=== PATIENT | female | born 1970 | race Caucasian/White ===

== ENCOUNTER → 2020-12-25 11:08 | Outpatient (BNVA) | payer OTHER, SELFPAY | PROVIDERS: Visit Provider Physician Assistant Medical | DX: S83.91XD Sprain of unspecified site of right knee, subsequent encounter (principal); S46.911D Strain of unspecified muscle, fascia and tendon at shoulder and upper arm level, right arm, subsequent encounter; Y04.2XXD Assault by strike against or bumped into by another person, subsequent encounter | CPT/HCPCS: 99203 ==

== ENCOUNTER → 2021-01-09 15:20 | Outpatient (BNVA) | payer OTHER, SELFPAY | PROVIDERS: Visit Provider Physician Assistant | DX: S80.01XD Contusion of right knee, subsequent encounter (principal); S46.911D Strain of unspecified muscle, fascia and tendon at shoulder and upper arm level, right arm, subsequent encounter; Y04.2XXD Assault by strike against or bumped into by another person, subsequent encounter | CPT/HCPCS: 99213 ==

== ENCOUNTER → 2021-01-24 15:26 | Outpatient (BNVA) | payer OTHER, SELFPAY | PROVIDERS: Visit Provider Physician Assistant | DX: M25.561 Pain in right knee (principal); S46.911D Strain of unspecified muscle, fascia and tendon at shoulder and upper arm level, right arm, subsequent encounter; X58.XXXD Exposure to other specified factors, subsequent encounter | CPT/HCPCS: 99213 ==

== ENCOUNTER → 2021-02-14 11:43 | Outpatient (BNVA) | payer OTHER, SELFPAY | PROVIDERS: Visit Provider Physician Assistant | DX: M25.561 Pain in right knee (principal); S46.911D Strain of unspecified muscle, fascia and tendon at shoulder and upper arm level, right arm, subsequent encounter; Y04.2XXD Assault by strike against or bumped into by another person, subsequent encounter | CPT/HCPCS: 99213 ==

== ENCOUNTER 2021-03-04 15:33 | Outpatient (REF) | payer OTHER, SELFPAY ==
--- NOTE | ~2021-03-04 | MR_ITS ---
EXAMINATION: MR KNEE WITHOUT CONTRAST, RIGHT CLINICAL INFORMATION: Anterior right knee pain COMPARISON: None TECHNIQUE: MRI of the knee without contrast was performed using routine sequences on a high-field scanner. FINDINGS: MENISCI: Medial Meniscus: Intact Lateral Meniscus: Intact LIGAMENTS: Cruciate: Intact Collateral: Intact EXTENSOR MECHANISM: Intact ARTICULAR CARTILAGE/BONE: Patellofemoral Compartment: Minimal cartilage surface irregularity of the lateral patellar facet. Medial Compartment: Minimal surface irregularity of the articular cartilage of the weightbearing femoral condyle Lateral Compartment: Normal JOINT FLUID AND BURSAE: Trace joint effusion. MR/MR knee RT wo con IMPRESSION: No meniscal tear. Minimal patellofemoral and medial compartment osteoarthritis with a trace joint effusion.
== END 2021-03-04 15:34 | disposition home or self-care (01) ==
LOC: HO.MRI 15:33
PROVIDERS: Visit Provider Internal Medicine
DX: M25.561 Pain in right knee (principal)
CPT/HCPCS: 73721

== ENCOUNTER → 2021-03-07 15:29 | Outpatient (BNVA) | payer OTHER, SELFPAY | PROVIDERS: Visit Provider Physician Assistant | DX: M25.511 Pain in right shoulder (principal); M25.561 Pain in right knee | CPT/HCPCS: 99214 ==

== ENCOUNTER → 2021-03-21 15:23 | Outpatient (BNVA) | payer OTHER, SELFPAY | PROVIDERS: Visit Provider Physician Assistant | DX: S49.91XD Unspecified injury of right shoulder and upper arm, subsequent encounter (principal); S89.91XD Unspecified injury of right lower leg, subsequent encounter; Y04.2XXD Assault by strike against or bumped into by another person, subsequent encounter | CPT/HCPCS: 99213 ==